=== PATIENT | male | born 1960 | race Caucasian/White ===

== ENCOUNTER 2023-02-13 22:19 | Emergency (ER) | payer OTHER ==
[~2023-02-13] VITALS: Ht 188 cm; Wt 91.0 kg
[2023-02-13 22:25] VITALS: BP 132/83; O2SAT 100
[2023-02-13 22:35] VITALS: PULSE 96; RESP 16
[2023-02-14] MEDS ORDERED: BACITRACIN ZINC OINT UDPKT TOP ONE (00:45)
[2023-02-14] MEDS ORDERED: ACETAMINOPHEN 325MG TABLET PO ONE (00:45)
[2023-02-14] MEDS ORDERED: LIDOCAINE HCL/PF 1% 10 MG/ML 5ML VIAL INFIL ONE (00:45)
[2023-02-14] MEDS ORDERED: TETANUS, DIPHTHERIA, PERTUSSIS VAC/PF 0.5ML (>10YR OLD) IM ONE (00:45)
[2023-02-14 04:00] VITALS: TEMP 98
== END 2023-02-14 03:34 | disposition home or self-care (01) ==
LOC: ER 22:19
DX: S61.412A Laceration without foreign body of left hand, initial encounter (principal); Z98.890 Other specified postprocedural states; W25.XXXA Contact with sharp glass, initial encounter; Y93.89 Activity, other specified; Y92.89 Other specified places as the place of occurrence of the external cause; Y99.8 Other external cause status
CPT/HCPCS: 12001; 99282